=== PATIENT | female | born 1970 | race Caucasian/White ===

== ENCOUNTER 2023-04-26 15:36 | Emergency (ER) | payer OTHER ==
[~2023-04-26] VITALS: Ht 165.1 cm; Wt 81.8 kg
[2023-04-26 16:01] VITALS: BP 152/90; PULSE 74; RESP 20; TEMP 97.8; O2SAT 99
== END 2023-04-26 17:19 | disposition left against medical advice (07) ==
LOC: MED 15:36
DX: M79.642 Pain in left hand (principal); R07.9 Chest pain, unspecified; Z53.21 Procedure and treatment not carried out due to patient leaving prior to being seen by health care provider; V49.88XA Car occupant (driver) (passenger) injured in other specified transport accidents, initial encounter; Y93.89 Activity, other specified; Y92.89 Other specified places as the place of occurrence of the external cause; Y99.8 Other external cause status
CPT/HCPCS: 99281

== ENCOUNTER 2023-04-29 21:06 | Emergency (ER) | payer OTHER ==
[~2023-04-29] VITALS: Ht 157.5 cm; Wt 81.6 kg
[2023-04-29 21:19] VITALS: BP 132/64; PULSE 71; RESP 16; TEMP 97; O2SAT 97
[2023-04-29 23:31] VITALS: O2SAT 97
[2023-04-30] MEDS ORDERED: NAPR-1717 PO (00:14)
== END 2023-04-30 00:20 | disposition home or self-care (01) ==
LOC: MED 21:06
DX: R07.89 Other chest pain (principal); V49.88XA Car occupant (driver) (passenger) injured in other specified transport accidents, initial encounter; Y93.89 Activity, other specified; Y92.89 Other specified places as the place of occurrence of the external cause; Y99.8 Other external cause status
CPT/HCPCS: 93005; 99283